=== PATIENT | female | born 1975 | race Caucasian/White ===

== ENCOUNTER 2023-10-20 06:44 | Outpatient (CLI) | payer BC, MEDICAID ==
[~2023-10-20] VITALS: Ht 152.4 cm; Wt 115.7 kg
[2023-10-20 07:11] LABS: TOTAL HEMOGLOBIN 15.5 G/dl (12.0-16.0)
[2023-10-20] MEDS: albuterol 2.5 MG/3 ML nebule NEB ONE (07:47)
[2023-10-20 07:49] VITALS: PULSE 91; RESP 16; O2SAT 97
== END 2023-10-20 23:59 | disposition home or self-care (01) ==
LOC: RT 06:44
PROVIDERS: ATTEND Internal Medicine Pulmonary Disease
DX: J45.998 Other asthma (principal); R94.2 Abnormal results of pulmonary function studies
CPT/HCPCS: 85018; 94060; 94727; 94729; 94760